=== PATIENT | female | born 1965 | race American Indian/Alaskan Native ===

== ENCOUNTER 2017-09-23 10:03 | Inpatient (IN) | payer MEDICAID ==
[2017-09-23] MEDS ORDERED: NEOSPORIN GU IR ONE ×2 (11:21→15:26)
--- NOTE | 2017-09-23 11:44 | History and Physical Report ---
History of Present Illness Date of examination: 09/23/17 Chief complaint: Symptomatic uterine fibroids History of present illness: Pt is a 51yo BF LMP 2 years ago spontaneously presents for surgical evaluation and treatment of pelvic pain due to uterine fibroids. Pelvic u/s showed multiple fibroids and she is therefore scheduled for a Robotic Assisted Total Hysterectomy with Bilateral SalpingoOophorectomy. Past History Past Medical History: hypertension, other (morbid obesity) Past Surgical History: no surgical history [employer] History: fibroids Family/Genetic History: diabetes, hypertension Social history: no significant social history, single Medications and Allergies Allergies Allergy/AdvReac Type Severity Reaction Status Date / Time amlodipine Allergy swelling, Verified 09/15/17 17:21 itching, cramps metoprolol Allergy swelling, Verified 09/15/17 17:21 hoarseness Home Medications Medication Instructions Recorded Confirmed Last Taken Type Acetaminophen/Pyrilamine/Caff 1 each PO Q6HR PRN 09/15/17 09/23/17 09/21/17 History [Midol Caplet] Citalopram [celeXA] 20 mg PO QDAY 09/15/17 09/23/17 09/21/17 History Hydroxyzine HCl [hydrOXYzine] 50 mg PO HS 09/15/17 09/15/17 Unknown History Ibuprofen [Motrin] 800 mg PO Q8HR PRN 09/15/17 09/23/17 09/21/17 History Triamterene/Hydrochlorothiazid 1 each PO DAILY 09/15/17 09/23/17 09/23/17 History [Triamterene-Hctz 37.5-25 mg Cp] Review of Systems All systems: negative - Vital Signs Vital signs: Vital Signs Temp Pulse Resp BP Pulse Ox 99.2 F 61 16 173/97 98 09/23/17 10:37 09/23/17 10:37 09/23/17 10:37 09/23/17 10:37 09/23/17 10:37 Temp Pulse Resp BP Pulse Ox 99.2 F 61 16 173/97 98 09/23/17 10:45 09/23/17 10:45 09/23/17 10:45 09/23/17 10:45 09/23/17 10:37 - Physical Exam Breasts: Positive: deferred Cardiovascular: Regular rate Lungs: Positive: Clear to auscultation Abdomen: Positive: normal appearance Genitourinary (Female): Positive: normal external genitalia Vagina: Positive: normal moisture Uterus: Positive: enlarged Extremities: Positive: normal Results Result Diagrams: 09/23/17 11:28 All other labs normal. Assessment and Plan - Patient Problems (1) Fibroid, uterine Onset Date: 09/23/17 Current Visit: Yes Status: Acute Qualifiers: Uterine leiomyoma location: intramural and subserous Qualified Code(s): D25.1 - Intramural leiomyoma of uterus; D25.2 - Subserosal leiomyoma of uterus; D25.2 - Subserosal leiomyoma of uterus Plan to address problem: A: Symptomatic fibroid uterus P: Admit for a RATH with BSO Consent signed and questions from pt and her daughter answered satisfactorily
[2017-09-23 11:50] LABS: Hematocrit 37.5 % (30.3-42.9); Hemoglobin 11.7 gm/dl (10.1-14.3); Mean Corpuscular HGB Conc 31 % (30-34); Mean Corpuscular Volume 71 fl (79-97); Platelet Count 211 K/mm3 (140-440); Red Cell Distribution Width 15.1 % (13.2-15.2); White Blood Count 6.8 K/mm3 (4.5-11.0)
[2017-09-23] MEDS ORDERED: ANCEF/STERILE WATER 2 GM/20 ML 2 GM/20 ML SYRINGE IV SCH (12:00)
[2017-09-23 12:05] LABS: Mean Corpuscular Hemoglobin 22 pg (28-32)
--- NOTE | 2017-09-23 12:12 | Anesthesia Day of Surgery ---
Anesthesia Day of Surgery - Day of Surgery Patient Examined: Yes Patient H&P Reviewed: Yes Patient is NPO: Yes
--- NOTE | 2017-09-23 12:12 | Anesthesia Consultation ---
Anesthesia Consult and Med Hx Date of service: 09/23/17 - Airway Anesthetic Teeth Evaluation: Good ROM Head & Neck: Adequate Mental/Hyoid Distance: Adequate Mallampati Class: Class II Intubation Access Assessment: Possibly Difficult - Pulmonary Exam CTA: Yes - Cardiac Exam Cardiac Exam: RRR - Pre-Operative Health Status ASA Pre-Surgery Classification: ASA3 Proposed Anesthetic Plan: General - Pulmonary Hx Smoking: Yes (former) - Cardiovascular System Hx Hypertension: Yes (x 10 yrs) - Central Nervous System Hx Psychiatric Problems: Yes - Hematic Hx Anemia: Yes - Other Systems Hx Alcohol Use: Yes (occas) Hx Cancer: No Hx Obesity: Yes (morbid)
[2017-09-23] MEDS ORDERED: ZOFRAN IV PRN ×2 (12:14→15:46)
[2017-09-23 12:22] LABS: BUN/Creatinine Ratio 30; Blood Urea Nitrogen 21 mg/dL (7-17); Calcium 9.1 mg/dL (8.4-10.2); Carbon Dioxide 23 mmol/L (22-30); Chloride 98.6 mmol/L (98-107); Glucose 85 mg/dL (65-100); Sodium 136 mmol/L (137-145)
[2017-09-23] MEDS: LACTATED RINGERS 1,000 ML IV SCH (12:25)
[2017-09-23 12:48] LABS: Anion Gap 20 mmol/L; Potassium 5.2 mmol/L (3.6-5.0)
[2017-09-23] MEDS ORDERED: DILAUDID ONE (12:53)
[2017-09-23] MEDS ORDERED: DIPRIVAN 10 MG/ML IV ONE (12:53)
[2017-09-23] MEDS ORDERED: ZEMURON IV ONE (12:53)
[2017-09-23] MEDS ORDERED: XYLOCAINE MPF 2% ONE (12:54)
[2017-09-23] MEDS ORDERED: PEPCID IV NR (13:00)
[2017-09-23] MEDS ORDERED: VERSED IV NR (13:00)
[2017-09-23] MEDS ORDERED: NEURONTIN PO NR (13:00)
[2017-09-23] MEDS ORDERED: LACTATED RINGERS 1,000 ML ONE (14:03)
[2017-09-23] MEDS ORDERED: ZOFRAN ONE (14:40)
[2017-09-23] MEDS ORDERED: DECADRON ONE (14:40)
[2017-09-23] MEDS ORDERED: NEOSTIGMINE ONE (14:41)
[2017-09-23] MEDS ORDERED: ROBINUL ONE ×2 (14:41→15:35)
[2017-09-23] MEDS ORDERED: NACL 0.9% IR ONE ×2 (15:27)
[2017-09-23] MEDS ORDERED: MARCAINE 0.5% INFILTRATI ONE (15:29)
[2017-09-23] MEDS ORDERED: REGLAN IV PRN (15:43)
[2017-09-23] MEDS ORDERED: BENADRYL IV PRN (15:43)
[2017-09-23] MEDS ORDERED: NARCAN 0.4 MG/1 ML IV PRN (15:43)
[2017-09-23] MEDS ORDERED: PERCOCET 5/325 PO PRN (15:46)
[2017-09-23] MEDS ORDERED: SODIUM CHLORIDE FLUSH SYRINGE 10 ML IV PRN (15:46)
[2017-09-23] MEDS ORDERED: TYLENOL PO PRN (15:46)
[2017-09-23] MEDS ORDERED: MILK OF MAGNESIA PO PRN (15:46)
[2017-09-23] MEDS ORDERED: NORCO 5/325 PO PRN (15:46)
[2017-09-23] MEDS ORDERED: NACL 0.9% 1000 ML 1,000 ML IV SCH (16:00)
[2017-09-23] MEDS ORDERED: CLIMARA TD SCH (16:00)
[2017-09-23] MEDS ORDERED: MORPHINE PCA 30MG/30ML IV SCH (16:00)
--- NOTE | 2017-09-23 16:06 | Operative Report ---
Operative Report Operative Report: Date of procedure: 10/23/2017 Pre-operative diagnosis: 1. Pelvic pain 2. Symptomatic fibroid uterus Post-operative diagnosis: Same with pelvic adhesions Procedure name(s): 1. Robotic-assisted total hysterectomy 2. BiLateral salpingo-oophorectomy 3. Lysis of pelvic adhesions Surgeon: Robert Thompson MD Flap Maker: Lakesha Eller SA Anesthesia: Gen. endotracheal intubation by Dr. Faye EBL: 150 mls Findings: A 14 week size multimyomatous uterus with an 8 x 8 cm posterior fibroid and a 5 x 3 cm right adnexal fibroid. Bilateral adherent tubo-ovarian adhesions. Procedure: After the patient's first correctly identified she was prepped and draped in the usual sterile fashion and placed in the dorsolithotomy position. The bladder was first catheterized using Aguillon catheter and the speculum was placed in the vagina and the anterior lip of the cervix was grasped using a single-tooth tenaculum, and the medium Vesicare cup was placed. The tenaculum and speculum was then removed from the vagina and attention was then turned to the abdomen. The skin knife was used to make a small incision approximately 5 cm above the umbilicus through which a 12 mm trocar was placed under direct visualization. After adequate amount of abdominal insufflation visualization of the pelvic organs found the uterus to be enlarged with an 8 x 8 cm posterior fibroid, and a 5 x 3 cm right adnexal fibroid and the tubes and ovaries were found to be adherent to bilaterally to the posterior uterine wall. A right lateral incision was made through which a 5mm trocar was placed under direct visualization. A right and left paramedian incision was made through which the 8 mm trochars were placed under direct visualization. The patient was then placed in steep Trendelenburg positioning and the robot was docked on the patient's left side. After all the robotic ports were connected and adequate functioning of the robotic arms were tested the surgeon then proceeded to the console to begin the hysterectomy. First the left round ligament was grasped, cauterized and cut, the left infundibulopelvic ligament was grasped, cauterized and cut, thus freeing the left ovary from the left pelvic sidewall. The same procedure was performed on the right. The right round ligament was grasped, cauterized and cut, the right infundibulopelvic ligament was grasped, cauterized and cut, thus freeing the right ovary from the right pelvic sidewall. The bladder flap was taken down anteriorly and the uterine vessels were grasped, cauterized and cut bilaterally. The cardinal ligaments were sequentially grasped, cauterized and cut down to the level of the uterosacral ligaments. At this time the posterior colpotomy was performed over the Vcare cup, and the cervix was circumscribed beginning posteriorly and meeting anteriorly until the cervix was freed. The cervix, uterus tubes and ovaries were then removed through the vagina, it was morcellated due to the size of the posterior uterine fibroid and sent to pathology. The vaginal cuff was then closed using 2-0 Vloc suture in a running fashion. Irrigation was then performed and after good hemostasis was achieved the procedure was considered complete. The Tisseel sealant was then sprayed across the vaginal cuff site, and after excellent hemostasis was assured Interceed was placed across the vaginal cuff site. All instruments were then removed from the abdominal cavity. And each incision was closed using 0 Vicryl suture in a [id number] configuration on the fascia followed by 4-0 Monocryl suture in a sub-cuticular fashion on the skin. Each incision was also infiltrated using 0.5% Marcaine solution. The vaginal pack was removed. The patient tolerated the procedure well and was transported to the recovery room in stable condition.
[2017-09-23] MEDS ORDERED: APRESOLINE ONE (16:11)
[2017-09-23] MEDS ORDERED: APRESOLINE IV ONE (16:15)
[2017-09-23] MEDS ORDERED: REGLAN IV ONE (16:15)
[2017-09-23] MEDS ORDERED: ZOFRAN IM ONE (16:15)
[2017-09-23] MEDS: DILAUDID IV PRN ×2 (16:27→16:50)
[2017-09-23] MEDS: TORADOL IV SCH (16:38)
--- NOTE | 2017-09-23 16:50 | Post Anesthesia Evaluation ---
- Post Anesthesia Evaluation Patient Participated: Yes Airway Patent: Yes Stable Respiratory Function: Yes Temp > 96.8F: Yes Pain Manageable: Yes Adequeate Hydration: Yes Anesthesia Complications: No
[2017-09-23] MEDS ORDERED: ANCEF/NS 1 GM/50 ML 1 GM/50 ML BAG IV SCH (20:00)
[2017-09-23] MEDS ORDERED: ceFAZolin 1 GM in NACL 0.9% 20 ML IV SCH (20:00)
[2017-09-23] MEDS ORDERED: SENOKOT S PO SCH (22:00)
[2017-09-23] MEDS ORDERED: COLACE PO SCH (22:00)
[2017-09-24] MEDS ORDERED: ceFAZolin 1 GM in NACL 0.9% 20 ML IV SCH
[2017-09-24] MEDS: LACTATED RINGERS 1,000 ML IV SCH (00:31)
[2017-09-24 06:03] LABS: Hematocrit 35.2 % (30.3-42.9); Hemoglobin 11.1 gm/dl (10.1-14.3)
--- NOTE | 2017-09-24 07:20 | Progress Note ---
Assessment and Plan - Patient Problems (1) Fibroid, uterine Onset Date: 09/23/17 Current Visit: Yes Status: Resolved Qualifiers: Uterine leiomyoma location: intramural and subserous Qualified Code(s): D25.1 - Intramural leiomyoma of uterus; D25.2 - Subserosal leiomyoma of uterus; D25.2 - Subserosal leiomyoma of uterus (2) Status post robot-assisted surgical procedure Onset Date: 09/24/17 Current Visit: Yes Status: Acute Plan to address problem: A: S/P RATH with BSO - POD #1 Doing well P: Advance diet as tolerated May go home this afternoon Subjective - Subjective Date of service: 09/24/17 Principal diagnosis: s/p RATH with BSO - POD #1 Interval history: Pt is s/p a Robotic Assisted Total Hysterectomy with Bilateral SalpingoOophorectomy, and feeling well. Pain controlled with [employer]. Patient reports: appetite normal, voiding normally, pain well controlled, ambulating normally, no flatus Objective - Vital Signs Latest vital signs: Vital Signs Temp Pulse Resp BP BP Pulse Ox 09/24/17 04:00 98.2 F 82 18 166/76 09/24/17 02:45 18 09/24/17 00:26 18 09/24/17 00:00 98.5 F 76 18 160/86 09/23/17 22:25 98.0 F 66 18 148/78 09/23/17 22:00 18 09/23/17 20:25 18 09/23/17 18:20 97.2 F L 88 16 141/77 141/77 98 09/23/17 17:45 62 15 147/79 100 09/23/17 17:30 65 13 145/84 100 09/23/17 17:20 14 09/23/17 17:15 63 14 145/87 100 09/23/17 17:08 13 09/23/17 17:00 61 15 139/84 100 09/23/17 16:50 16 09/23/17 16:45 65 12 144/84 100 09/23/17 16:38 14 09/23/17 16:30 60 11 L 142/79 100 09/23/17 16:27 12 09/23/17 16:15 58 L 13 160/89 98 09/23/17 16:10 60 14 187/97 98 09/23/17 16:05 58 L 12 178/96 94 09/23/17 16:00 61 14 189/106 100 09/23/17 15:58 97.1 F L 59 L 13 180/92 100 09/23/17 10:45 99.2 F 61 16 173/97 09/23/17 10:37 99.2 F 61 16 173/97 98 Intake and Output 09/23/17 09/24/17 09/24/17 22:59 06:59 14:59 Intake Total 2250 120 Output Total 750 900 Balance 1500 -780 Intake: IV 2250 Lactated Ringers 1,000 ml 1000 @ 125 mls/hr IV DIRECT JETHRO Rx#:[id number] Oral 120 Output: Urine 750 900 Indwelling Catheter 400 Uretheral (Aguillon) 400 500 Other: Total, Intake Amount 120 Total, Output Amount 400 Voiding Method Indwelling Catheter - Exam Breasts: Present: deferred Cardiovascular: Present: Regular rate Lungs: Present: Clear to auscultation Abdomen: Present: normal appearance, soft Extremities: Present: normal Incision: Present: normal, dry, intact - Labs Labs: Abnormal lab results 09/23/17 09/23/17 09/23/17 Range/Units 11:28 11:28 13:00 RBC 5.30 H (3.65-5.03) M/mm3 MCV 71 L (79-97) fl MCH 22 L (28-32) pg Bradley % (Auto) 8.4 H (0.0-7.3) % Sodium 136 L (137-145) mmol/L Potassium 5.2 H 3.5 L D (3.6-5.0) mmol/L BUN 21 H (7-17) mg/dL Laboratory Tests 09/23/17 09/23/17 09/23/17 11:28 11:28 11:28 WBC 6.8 RBC 5.30 H Hgb 11.7 Hct 37.5 MCV 71 L MCH 22 L MCHC 31 RDW 15.1 Plt Count 211 Lymph % (Auto) 31.2 Bradley % (Auto) 8.4 H Eos % (Auto) 3.0 Baso % (Auto) 1.0 Lymph # 2.1 Bradley # 0.6 Eos # 0.2 Baso # 0.1 Seg Neutrophils % 56.4 Seg Neutrophils # 3.8 Sodium 136 L Potassium 5.2 H Chloride 98.6 Carbon Dioxide 23 Anion Gap 20 BUN 21 H Creatinine 0.7 Estimated GFR > 60 BUN/Creatinine Ratio 30 Glucose 85 Calcium 9.1 Blood Type O POSITIVE Antibody Screen Negative 09/23/17 09/24/17 13:00 05:28 WBC RBC Hgb 11.1 Hct 35.2 MCV MCH MCHC RDW Plt Count Lymph % (Auto) Bradley % (Auto) Eos % (Auto) Baso % (Auto) Lymph # Bradley # Eos # Baso # Seg Neutrophils % Seg Neutrophils # Sodium Potassium 3.5 L D Chloride Carbon Dioxide Anion Gap BUN Creatinine Estimated GFR BUN/Creatinine Ratio Glucose Calcium Blood Type Antibody Screen
--- NOTE | 2017-09-24 07:36 | Discharge Summary ---
Providers - Providers Date of Admission: 09/23/17 15:46 Date of discharge: 09/24/17 Attending physician: ERLIN GARCIA Primary care physician: MARKETING STRATEGIST Hospitalization Reason for admission: other (Pelvic pain; Symptomatic fibroid uterus) Procedure: other (Robotic Assisted Total Hysterectomy with Bilateral SalpingoOophorectomy) Episiotomy: none Laceration: none Incision: normal, dry, intact Other procedures: none complications: none Discharge diagnosis: other (s/p RATH with BSO) Hospital course: Pt is a 51yo BF LMP 2 years ago spontaneously who presented for surgical evaluation and treatment of pelvic pain due to uterine fibroids. She underwent a Robotic Assisted Total Hysterectomy with Bilateral SalpingoOophorectomy, and tolerated the procedure well. Post operative course was unremarkable, and by POD #1 she was tolerating a liquid diet without nausea or vomiting, ambulating and voiding without difficulty. She was therefore discharged to home on POD #1 in stable condition. Condition at discharge: Good Disposition: DC-01 TO HOME OR SELFCARE - Discharge Diagnoses (1) Fibroid, uterine Status: Resolved Qualifiers: Uterine leiomyoma location: intramural and subserous Qualified Code(s): D25.1 - Intramural leiomyoma of uterus; D25.2 - Subserosal leiomyoma of uterus; D25.2 - Subserosal leiomyoma of uterus (2) Status post robot-assisted surgical procedure Status: Resolved Plan - Discharge Medications Prescriptions: Estradiol [Climara] 0.1 mg TD TuFr #7 patch HYDROcodone/APAP 5-325 [[place] 5-325 mg TAB] 1 each PO Q4H PRN #30 tablet PRN Reason: Pain, Moderate (4-6) Ibuprofen [Motrin 800 MG tab] 800 mg PO Q8HR PRN #30 tablet PRN Reason: Pain - Provider Discharge Summary Activity: routine, no sex for 6 weeks, no heavy lifting 4 weeks, no strenuous exercise Diet: routine Instructions: routine Additional instructions: [] Smoking cessation referral if applicable(refer to patient education folder for contact #) [] Refer to [facility] Booklet Call your doctor immediately for: * Fever > 100.5 * Heavy vaginal bleeding ( >1 pad per hour) * Severe persistent headache * Shortness of breath * Reddened, hot, painful area to leg or breast * Drainage or odor from incision. * Keep incision clean and dry at all times and follow doctor's instructions regarding bathing/showering - Follow up plan Follow up: PRIMARY CARE, [Primary Care Provider] - 7 Days ERLIN GARCIA MD [Staff Physician] - 14 Days
[2017-09-24] MEDS: TORADOL IV SCH (08:57)
[2017-09-24 10:56] VITALS: BP 142/85
== END 2017-09-24 17:30 | disposition home or self-care (01) | DRG 742 ==
LOC: OR 10:03 → OB 15:46
PROVIDERS: ADMIT Obstetrics & Gynecology; ATTEND Obstetrics & Gynecology
PROC: 0UT98ZZ Resection of Uterus, Via Natural or Artificial Opening Endoscopic (ICD-10-PCS; principal; 2017-09-23)
PROC: 0UT78ZZ Resection of Bilateral Fallopian Tubes, Via Natural or Artificial Opening Endoscopic (ICD-10-PCS; 2017-09-23)
PROC: 0UT28ZZ Resection of Bilateral Ovaries, Via Natural or Artificial Opening Endoscopic (ICD-10-PCS; 2017-09-23)
PROC: 8E0W4CZ Robotic Assisted Procedure of Trunk Region, Percutaneous Endoscopic Approach (ICD-10-PCS; 2017-09-23)
DX: D25.1 Intramural leiomyoma of uterus (principal); Z68.42 Body mass index [BMI] 45.0-49.9, adult; I10 Essential (primary) hypertension; E66.01 Morbid (severe) obesity due to excess calories; Z98.890 Other specified postprocedural states; Z83.3 Family history of diabetes mellitus; Z82.49 Family history of ischemic heart disease and other diseases of the circulatory system; Z88.8 Allergy status to other drugs, medicaments and biological substances; Z87.891 Personal history of nicotine dependence; Z72.89 Other problems related to lifestyle; D25.2 Subserosal leiomyoma of uterus
CPT/HCPCS: 36415; 80048; 81025; 84132; 85014; 85018; 85025; 86850; 86900; 86901; 88307; A4217; C1765; C9250; J0360; J0690; J1100; J1170; J1885; J2250; J2270; J2405; J2704; J2710; J2765; J7120